=== PATIENT | female | born 2000 | race African-American/Black ===

== ENCOUNTER 2022-02-13 17:56 | Emergency (ER) | payer MEDICAID ==
[~2022-02-13] VITALS: Ht 167.6 cm; Wt 66.0 kg
[2022-02-13 18:30] VITALS: BP 102/65
== END 2022-02-13 22:45 | disposition left against medical advice (07) ==
LOC: ER 17:56
DX: Z53.21 Procedure and treatment not carried out due to patient leaving prior to being seen by health care provider (principal)